=== PATIENT | female | born 1945 | race Caucasian/White ===

== ENCOUNTER 2021-02-03 20:48 | Inpatient (IN) | payer OTHER, BC ==
[2021-02-03 22:56] LABS: BASO % 0.7 % (0-2.0); EOS % 0.5 % (0-4.5); HEMATOCRIT 43.5 % (32.4-45.2); LYMPH % 12.4 % (8-40); MCH 31.4 pg (25.7-33.7); MCHC 34.4 g/dl (32.0-36.0); MEAN CELL VOLUME 91.3 fl (80-96); MEAN PLT VOLUME 7.4 fl (7.5-11.1); NEUT % 80.4 % (42.8-82.8); PLATELET COUNT 352 10^3/uL (134-434); RBC 4.76 M/mm3 (3.60-5.2); RDW 12.9 % (11.6-15.6); WHITE BLOOD COUNT 13.4 K/mm3 (4.0-10.0)
[2021-02-03 23:20] LABS: CHLORIDE 96 mmol/L (98-107); SODIUM 131 mmol/L (136-145)
[2021-02-03 23:22] LABS: ALBUMIN 3.7 g/dl (3.4-5.0); ANION GAP 10 MMOL/L (8-16); CALCIUM 9.4 mg/dL (8.5-10.1); CO2 26 mmol/L (21-32); GLUCOSE,RANDOM 104 mg/dL (74-106); MAGNESIUM 2.2 mg/dL (1.8-2.4)
[2021-02-03 23:25] LABS: CREATININE 0.5 mg/dL (0.55-1.3)
[2021-02-03 23:26] LABS: PHOSPHOROUS 3.4 mg/dL (2.5-4.9); SGOT/AST 15 U/L (15-37)
[2021-02-03 23:27] LABS: BILIRUBIN,TOTAL 0.4 mg/dL (0.2-1); TOT PROT 7.1 g/dl (6.4-8.2)
[2021-02-03 23:28] LABS: ALK PHOS 96 U/L (45-117)
[2021-02-03 23:31] LABS: SGPT/ALT 24 U/L (13-61)
[2021-02-04] MEDS ORDERED: LORazepam 1 MG TABLET ONE (00:16)
[2021-02-04] MEDS ORDERED: LORazepam 2 MG TABLET PO ONE ×2 (00:23→20:05)
[2021-02-04 00:47] LABS: EPI CELLS >36 /uL (0-25.1); HYALINE CASTS 1 /uL (0-3.1); URINE APPEARANCE CLOUDY; URINE BACTERIA 130 /uL (0-1359); URINE BILIRUBIN NEGATIVE (NEGATIVE); URINE COLOR YELLOW; URINE GLUCOSE (UA) NEGATIVE (NEGATIVE); URINE KETONE NEGATIVE (NEGATIVE); URINE LEUK ESTERASE 2+ (NEGATIVE); URINE NITRITE NEGATIVE (NEGATIVE); URINE PROTEIN NEGATIVE (NEGATIVE); URINE RBC 25 /uL (0-23.9); URINE UROBILINOGEN 0.2 mg/dL (0.2-1.0); URINE WBC 66 /uL (0-25.8)
[2021-02-04] MEDS ORDERED: ACETAMINOPHEN 1000 MG/100 ML VIAL (NON FORMULARY) IVPB ONE (01:43)
[2021-02-04] MEDS ORDERED: ACETAMINOPHEN INJECTION 100 ML IVPB ONE (01:57)
[2021-02-04 05:52] LABS: CHOLESTEROL 144 mg/dL (50-200); TRIGLYCERIDES 56 mg/dL (0-150)
[2021-02-04 05:53] LABS: LDL CHOLESTEROL (ONLY SJRH) 49 mg/dL (5-100)
[2021-02-04 05:54] LABS: HDL CHOLESTEROL 79 mg/dL (40-60)
[2021-02-04] MEDS: INSULIN SLIDING SCALE (NOVOLOG) 1 VIAL SQ SCH ×3 (09:06→16:49)
[2021-02-04] MEDS ORDERED: FOLIC ACID 1 MG TABLET (FP) ONE (09:37)
[2021-02-04] MEDS ORDERED: amLODIPine BESYLATE 5 MG TABLET (FP) ONE (09:37)
[2021-02-04] MEDS ORDERED: THIAMINE HCL 100 MG TABLET (FP) ONE (09:37)
[2021-02-04] MEDS ORDERED: ASPIRIN 81 MG CHEWABLE TABLETS ONE (09:37)
[2021-02-04] MEDS: THIAMINE HCL 100 MG TABLET (FP) PO SCH (09:54)
[2021-02-04] MEDS: FOLIC ACID 1 MG TABLET (FP) PO SCH (09:55)
[2021-02-04] MEDS: amLODIPine BESYLATE 5 MG TABLET (FP) PO SCH (09:55)
[2021-02-04] MEDS: ASPIRIN 81 MG CHEWABLE TABLETS PO SCH (09:55)
[2021-02-04 10:58] VITALS: BMI 36.6
[2021-02-04] MEDS ORDERED: LORazepam 0.5 MG TABLET PO ONE (20:05)
[2021-02-04] MEDS: ATORVASTATIN CA 40 MG TABLET (FP) PO SCH (21:04)
[2021-02-05] MEDS: INSULIN SLIDING SCALE (NOVOLOG) 1 VIAL SQ SCH ×3 (06:03→17:29)
[2021-02-05 08:14] LABS: BASO % 0.6 % (0-2.0); EOS % 1.1 % (0-4.5); HEMATOCRIT 40.8 % (32.4-45.2); HEMOGLOBIN 14.3 GM/dL (10.7-15.3); LYMPH % 16.6 % (8-40); MCH 32.3 pg (25.7-33.7); MEAN CELL VOLUME 92.1 fl (80-96); MEAN PLT VOLUME 7.9 fl (7.5-11.1); NEUT % 72.7 % (42.8-82.8); PLATELET COUNT 333 10^3/uL (134-434); RBC 4.42 M/mm3 (3.60-5.2); RDW 13.2 % (11.6-15.6); WHITE BLOOD COUNT 8.9 K/mm3 (4.0-10.0)
[2021-02-05 08:40] LABS: CALCIUM 8.9 mg/dL (8.5-10.1)
[2021-02-05 08:41] LABS: ALBUMIN 3.2 g/dl (3.4-5.0); MAGNESIUM 2.3 mg/dL (1.8-2.4)
[2021-02-05 08:44] LABS: CREATININE 0.4 mg/dL (0.55-1.3); PHOSPHOROUS 3.8 mg/dL (2.5-4.9)
[2021-02-05 08:46] LABS: BILIRUBIN,TOTAL 0.6 mg/dL (0.2-1); TOT PROT 6.5 g/dl (6.4-8.2)
[2021-02-05] MEDS ORDERED: POTASSIUM CHLORIDE TABS 20 MEQ TABLET.ER (FP) PO ONE (09:06)
[2021-02-05] MEDS: THIAMINE HCL 100 MG TABLET (FP) PO SCH (09:21)
[2021-02-05] MEDS: ASPIRIN 81 MG CHEWABLE TABLETS PO SCH (09:21)
[2021-02-05] MEDS: amLODIPine BESYLATE 5 MG TABLET (FP) PO SCH (09:22)
[2021-02-05] MEDS: FOLIC ACID 1 MG TABLET (FP) PO SCH (09:22)
[2021-02-05] MEDS ORDERED: LORazepam 2 MG TABLET PO PRN (13:00)
[2021-02-05] MEDS: LORazepam 0.5 MG TABLET PO PRN ×2 (14:44→21:01)
[2021-02-05 16:45] LABS: URINE BARBITURATES NEGATIVE (NEGATIVE)
[2021-02-05 16:46] LABS: COCAINE, UR NEGATIVE (NEGATIVE); EPI CELLS >36 /uL (0-25.1); HYALINE CASTS 1 /uL (0-3.1); METHADONE, UR NEGATIVE (NEGATIVE); OPIATES, URI NEGATIVE (NEGATIVE); PHENCYCLIDINE,URINE NEGATIVE (NEGATIVE); URINE AMPHETAMINES NEGATIVE (NEGATIVE); URINE APPEARANCE CLEAR; URINE BACTERIA 13 /uL (0-1359); URINE BILIRUBIN NEGATIVE (NEGATIVE); URINE COLOR YELLOW; URINE GLUCOSE (UA) NEGATIVE (NEGATIVE); URINE KETONE NEGATIVE (NEGATIVE); URINE LEUK ESTERASE TRACE (NEGATIVE); URINE NITRITE NEGATIVE (NEGATIVE); URINE PROTEIN NEGATIVE (NEGATIVE); URINE RBC 43 /uL (0-23.9); URINE UROBILINOGEN 0.2 mg/dL (0.2-1.0); URINE WBC 20 /uL (0-25.8)
[2021-02-05 16:47] LABS: URINE BENZODIAZEPINES NEGATIVE (NEGATIVE)
[2021-02-05] MEDS: ATORVASTATIN CA 40 MG TABLET (FP) PO SCH (21:04)
[2021-02-06] MEDS: INSULIN SLIDING SCALE (NOVOLOG) 1 VIAL SQ SCH ×3 (06:13→16:50)
[2021-02-06 08:16] LABS: BASO % 0.5 % (0-2.0); HEMATOCRIT 41.9 % (32.4-45.2); HEMOGLOBIN 14.7 GM/dL (10.7-15.3); LYMPH % 14.4 % (8-40); MCH 32.5 pg (25.7-33.7); MEAN PLT VOLUME 7.8 fl (7.5-11.1); MONO % 9.7 % (3.8-10.2); NEUT % 74.4 % (42.8-82.8); PLATELET COUNT 323 10^3/uL (134-434); RBC 4.51 M/mm3 (3.60-5.2); RDW 13.5 % (11.6-15.6); WHITE BLOOD COUNT 8.2 K/mm3 (4.0-10.0)
[2021-02-06 08:46] LABS: ALBUMIN 3.2 g/dl (3.4-5.0); BLOOD UREA NITROGEN 3.8 mg/dL (7-18)
[2021-02-06 08:48] LABS: CALCIUM 9.2 mg/dL (8.5-10.1)
[2021-02-06 08:50] LABS: CREATININE 0.5 mg/dL (0.55-1.3)
[2021-02-06 08:51] LABS: BILIRUBIN,TOTAL 0.7 mg/dL (0.2-1); TOT PROT 6.5 g/dl (6.4-8.2)
[2021-02-06] MEDS: amLODIPine BESYLATE 5 MG TABLET (FP) PO SCH (09:12)
[2021-02-06] MEDS: LORazepam 0.5 MG TABLET PO PRN ×3 (09:12→21:29)
[2021-02-06] MEDS: FOLIC ACID 1 MG TABLET (FP) PO SCH (09:12)
[2021-02-06] MEDS: THIAMINE HCL 100 MG TABLET (FP) PO SCH (09:12)
[2021-02-06] MEDS: ASPIRIN 81 MG CHEWABLE TABLETS PO SCH (11:04)
[2021-02-06] MEDS ORDERED: PNEUMOC 13-VAL CONJ-DIP CRM/PF 0.5 ML DISP.SYRIN IM ONE (12:30)
[2021-02-06] MEDS: ATORVASTATIN CA 40 MG TABLET (FP) PO SCH (21:31)
[2021-02-07] MEDS: INSULIN SLIDING SCALE (NOVOLOG) 1 VIAL SQ SCH ×3 (06:34→17:21)
[2021-02-07] MEDS: LORazepam 0.5 MG TABLET PO PRN ×3 (06:36→20:59)
[2021-02-07] MEDS ORDERED: PT OWN MED DRAWER 7, Y5N ONE (09:45)
[2021-02-07] MEDS: amLODIPine BESYLATE 5 MG TABLET (FP) PO SCH (09:48)
[2021-02-07] MEDS: FOLIC ACID 1 MG TABLET (FP) PO SCH (09:48)
[2021-02-07] MEDS: THIAMINE HCL 100 MG TABLET (FP) PO SCH (09:48)
[2021-02-07] MEDS: ASPIRIN 81 MG CHEWABLE TABLETS PO SCH (09:48)
[2021-02-07 15:48] VITALS: PULSE 102
[2021-02-07] MEDS: ATORVASTATIN CA 40 MG TABLET (FP) PO SCH (20:59)
[2021-02-07 22:47] VITALS: BP 154/77; TEMP 98.3
[2021-02-08] MEDS ORDERED: MULTIVITAMINS THER W-MINERALS COMBO TABLET (FP) PO SCH (10:00)
== END 2021-02-07 22:45 | DRG 690 ==
LOC: JER 20:48 → JERBED 02-04 01:20 → J4W 02-04 09:53
PROVIDERS: ADMIT Internal Medicine
DX: N39.0 Urinary tract infection, site not specified (principal); R42 Dizziness and giddiness; T42.4X5A Adverse effect of benzodiazepines, initial encounter; I10 Essential (primary) hypertension; E78.5 Hyperlipidemia, unspecified; E11.9 Type 2 diabetes mellitus without complications; F39 Unspecified mood [affective] disorder; F13.10 Sedative, hypnotic or anxiolytic abuse, uncomplicated; F10.10 Alcohol abuse, uncomplicated; G47.33 Obstructive sleep apnea (adult) (pediatric); M62.81 Muscle weakness (generalized); D72.829 Elevated white blood cell count, unspecified; E66.9 Obesity, unspecified; Z68.38 Body mass index [BMI] 38.0-38.9, adult; F41.9 Anxiety disorder, unspecified; M19.91 Primary osteoarthritis, unspecified site
CPT/HCPCS: 36415; 70450-TC; 71046-TC-FY; 72125-TC; 72170-TC-FY; 80053; 80061; 80307; 81003; 82962; 83036; 83735; 84100; 84439; 84443; 84484; 85025; 87040; 87086; 93005; 93010; 93970-TC; 94660; 97116-GP; 97162-GP; 99285-25; C9803; J0131; U0003; U0005